=== PATIENT | female | born 1995 | race American Indian/Alaskan Native ===

== ENCOUNTER 2020-07-03 04:08 | Emergency (ER) | payer OTHER ==
[2020-07-03] MEDS ORDERED: SODIUM CHLORIDE 0.9% 1000 ML 1,000 ML IV ONE (04:48)
--- NOTE | 2020-07-03 05:08 | Emergency Department Report ---
HPI - General Chief Complaint: Overdose - HPI HPI: The patient is a 24-year-old female presenting with a chief complaint of suicidal ideation and cyproheptadine overdose. The patient states she is felt depressed for the past month and yesterday at approximate 17:00 she overdosed on multiple (quantity unknown) cyproheptadine 4 mg tablets. Patient denies any other coingestions. The patient states she just wanted to "end it all." Poison control was contacted by nursing recommended labs and normal saline 1 L ED Review of Systems ROS: Stated complaint: DRUG OD Other details as noted in HPI Physical Exam - Physical Exam Vital Signs: Vital Signs 07/03/20 04:15 Temperature 98.0 F Pulse Rate 124 H Respiratory 19 Rate Blood Pressure 113/63 [Right] O2 Sat by Pulse 98 Oximetry ED Course Vital Signs 07/03/20 04:15 Temperature 98.0 F Pulse Rate 124 H Respiratory 19 Rate Blood Pressure 113/63 [Right] O2 Sat by Pulse 98 Oximetry Critical care attestation.: If time is entered above; I have spent that time in minutes in the direct care o f this critically ill patient, excluding procedure time. ED Disposition Condition: Stable
--- NOTE | 2020-07-03 05:10 | Emergency Department Report ---
Chief Complaint: Overdose Stated Complaint: DRUG OD Time Seen by Provider: 07/03/20 05:09 - HPI History of Present Illness: The patient is a 24-year-old female presenting with a chief complaint of suicidal ideation and cyproheptadine overdose. The patient states she is felt depressed for the past month and yesterday at approximate 17:00 she overdosed on multiple (quantity unknown) cyproheptadine 4 mg tablets. Patient denies any other coingestions. The patient states she just wanted to "end it all." Poison control was contacted by nursing recommended labs and normal saline 1 L - Exam Vital Signs: Vital Signs 07/03/20 04:15 Temperature 98.0 F Pulse Rate 124 H Respiratory 19 Rate Blood Pressure 113/63 [Right] O2 Sat by Pulse 98 Oximetry MSE screening note: Focused history and physical exam performed. Due to findings the following was ordered: Labs, normal saline 1 L, 1013 ED Disposition for MSE Condition: Stable
[2020-07-03 05:37] LABS: Basophils # (Auto) 0.1 K/mm3 (0.0-0.1); Eosinophils # (Auto) 0.1 K/mm3 (0.0-0.4); Eosinophils % (Auto) 1.7 % (0.0-4.3); Hematocrit 38.3 % (30.3-42.9); Hemoglobin 12.5 gm/dl (10.1-14.3); Lymphocytes # (Auto) 1.5 K/mm3 (1.2-5.4); Lymphocytes % (Auto) 22.4 % (13.4-35.0); Mean Corpuscular HGB Conc 33 % (30-34); Mean Corpuscular Volume 79 fl (79-97); Monocytes # (Auto) 0.4 K/mm3 (0.0-0.8); Monocytes % (Auto) 6.5 % (0.0-7.3); Platelet Count 233 K/mm3 (140-440); Red Blood Count 4.84 M/mm3 (3.65-5.03)
[2020-07-03 05:58] LABS: Alanine Aminotransferase 12 units/L (7-56); Albumin 4.4 g/dL (3.9-5); BUN/Creatinine Ratio 18; Blood Urea Nitrogen 14 mg/dL (7-17); Calcium 9.6 mg/dL (8.4-10.2); Hemolysis Index 1
--- NOTE | 2020-07-03 06:14 | Emergency Department Report ---
ED General Adult HPI - General Chief complaint: Overdose Stated complaint: DRUG OD Time Seen by Provider: 07/03/20 05:09 Source: patient, EMS Mode of arrival: Wheelchair Limitations: No Limitations - Related Data Allergies Allergy/AdvReac Type Severity Reaction Status Date / Time No Known Allergies Allergy Unverified 07/03/20 04:44 ED Review of Systems ROS: Stated complaint: DRUG OD Other details as noted in HPI ED Past Medical Hx - Social History Smoking Status: Never Smoker Substance Use Type: None ED Physical Exam - General Limitations: No Limitations ED Course Vital Signs 07/03/20 07/03/20 07/03/20 04:15 04:30 04:46 Temperature 98.0 F Pulse Rate 124 H 115 H 112 H Respiratory 19 16 17 Rate Blood Pressure 113/63 113/63 Blood Pressure 113/63 [Right] O2 Sat by Pulse 98 100 100 Oximetry 07/03/20 07/03/20 07/03/20 05:00 05:16 05:30 Temperature Pulse Rate 112 H 116 H 117 H Respiratory 12 16 24 Rate Blood Pressure 107/67 107/67 104/69 Blood Pressure [Right] O2 Sat by Pulse 100 100 100 Oximetry 07/03/20 07/03/20 07/03/20 05:46 06:16 06:30 Temperature Pulse Rate 109 H 103 H 106 H Respiratory 17 20 16 Rate Blood Pressure 104/69 113/71 107/69 Blood Pressure [Right] O2 Sat by Pulse 98 100 100 Oximetry 07/03/20 06:46 Temperature Pulse Rate 107 H Respiratory 15 Rate Blood Pressure 107/69 Blood Pressure [Right] O2 Sat by Pulse 100 Oximetry ED Medical Decision Making - Lab Data Result diagrams: 07/03/20 04:50 07/03/20 04:50 Laboratory Results - last 24 hr 07/03/20 07/03/20 07/03/20 04:50 04:50 04:50 WBC 6.8 RBC 4.84 Hgb 12.5 Hct 38.3 MCV 79 MCH 26 L MCHC 33 RDW 14.0 Plt Count 233 Lymph % (Auto) 22.4 [place] % (Auto) 6.5 Eos % (Auto) 1.7 Baso % (Auto) 1.0 Lymph # (Auto) 1.5 [place] # (Auto) 0.4 Eos # (Auto) 0.1 Baso # (Auto) 0.1 Seg Neutrophils % 68.4 Seg Neutrophils # 4.7 Sodium 142 Potassium 4.3 Chloride 104.6 Carbon Dioxide 27 Anion Gap 15 BUN 14 Creatinine 0.8 Estimated GFR > 60 BUN/Creatinine Ratio 18 Glucose 92 Calcium 9.6 Total Bilirubin 0.30 AST 15 ALT 12 Alkaline Phosphatase 63 Total Protein 7.8 Albumin 4.4 Albumin/Globulin Ratio 1.3 Salicylates Acetaminophen 5.0 L Plasma/Serum Alcohol 07/03/20 07/03/20 04:50 04:50 WBC RBC Hgb Hct MCV MCH MCHC RDW Plt Count Lymph % (Auto) [place] % (Auto) Eos % (Auto) Baso % (Auto) Lymph # (Auto) [place] # (Auto) Eos # (Auto) Baso # (Auto) Seg Neutrophils % Seg Neutrophils # Sodium Potassium Chloride Carbon Dioxide Anion Gap BUN Creatinine Estimated GFR BUN/Creatinine Ratio Glucose Calcium Total Bilirubin AST ALT Alkaline Phosphatase Total Protein Albumin Albumin/Globulin Ratio Salicylates < 0.3 L Acetaminophen Plasma/Serum Alcohol < 0.01 - EKG Data -: EKG Interpreted by Ar EKG shows normal: sinus rhythm, axis, intervals, QRS complexes, ST-T waves Rate: tachycardia - EKG Data Interpretation: nonspecific ST-T wave sonny Critical care attestation.: If time is entered above; I have spent that time in minutes in the direct care of this critically ill patient, excluding procedure time. ED Disposition Condition: Stable Referrals: PRIMARY CARE, [Primary Care Provider] - 3-5 Days
[2020-07-03 06:36] LABS: Amphetamine Screen,Urine PRESUMPTIVE NEGATIVE; Benzodiazepines Screen,Urine PRESUMPTIVE NEGATIVE; Cannabinoid Screen,Urine PRESUMPTIVE NEGATIVE; Cocaine Screen,Urine PRESUMPTIVE NEGATIVE; Methadone Screen,Urine PRESUMPTIVE NEGATIVE; Opiate Screen,Urine PRESUMPTIVE NEGATIVE
[2020-07-03 06:39] LABS: Bacteria,Urine 1+ /HPF (Negative); Bilirubin,Urine NEG (Negative); Blood,Urine NEG (Negative); Color,Urine Yellow (Yellow); Mucus,Urine FEW /HPF; Protein,Urine <15 mg/dL mg/dL (Negative); Urobilinogen,Urine < 2.0 mg/dL (<2.0)
--- NOTE | 2020-07-03 07:51 | Emergency Department Report ---
ED Psych HPI - General Chief Complaint: Overdose Stated Complaint: DRUG OD Time Seen by Provider: 07/03/20 05:09 Source: patient, EMS Mode of arrival: Wheelchair - History of Present Illness Initial Comments: This is a 24-year-old female who states that she took an overdose at 10 AM yesterday. She is very vague as to quantity but finally states that the number of pills fit in the palm of her hand. She denies taking anything other than Periactin which she thinks is a high blood pressure medicine and appetite stimulating pill that her mother is taking. She is denies taking 2 medications clearly. She states that she was generally feeling sad. She denies any pre- existing plan for suicide or continuing intent. She states that she has no prior history of mental health disorder or hospitalization. She states that she has never been prescribed anything for "being sad". She states that she is dissatisfied with her life although she knows that "many people have it worse". She states that she works but does not describe a specific job but states he does several things. Her command of Greek is moderately good. She is however a very vague historian. A 1013 was already executed by my colleague prior to my arrival. Complaint: feels depressed, other (Suicidal gesture) -: week(s) (Long-term), month(s) Associated Psychiatric Symptoms: depression History of same: No (Denies previous overdose) Improves With: none Worsens With: none Context: significant life stressor (Could not identify 1) Associated Symptoms: denies other symptoms Treatments Prior to Arrival: none If Self Harm: admits thoughts of - Related Data Allergies Allergy/AdvReac Type Severity Reaction Status Date / Time No Known Allergies Allergy Unverified 07/03/20 04:44 ED Review of Systems ROS: Stated complaint: DRUG OD Other details as noted in HPI Constitutional: denies: chills, fever Eyes: denies: eye pain, vision change ENT: denies: ear pain, throat pain Respiratory: denies: cough, shortness of breath Cardiovascular: denies: chest pain, palpitations Endocrine: no symptoms reported Gastrointestinal: denies: abdominal pain, nausea, diarrhea Genitourinary: denies: urgency, dysuria Musculoskeletal: denies: back pain, arthralgia Skin: denies: rash, lesions Neurological: denies: headache, weakness, paresthesias Psychiatric: depression. denies: anxiety Hematological/Lymphatic: denies: easy bleeding, easy bruising ED Past Medical Hx - Past Medical History Previous Medical History?: No - Social History Smoking Status: Never Smoker Substance Use Type: None ED Physical Exam - General Limitations: No Limitations General appearance: alert, in no apparent distress - Head Head exam: Present: atraumatic, normocephalic - Eye Eye exam: Present: normal appearance - ENT ENT exam: Present: mucous membranes moist - Neck Neck exam: Present: normal inspection - Respiratory Respiratory exam: Present: normal lung sounds bilaterally. Absent: respiratory distress - Cardiovascular Cardiovascular Exam: Present: normal rhythm, tachycardia. Absent: systolic murmur, diastolic murmur, rubs, gallop - GI/Abdominal GI/Abdominal exam: Present: soft, normal bowel sounds. Absent: distended, tenderness, guarding, rebound - Extremities Exam Extremities exam: Present: normal inspection. Absent: calf tenderness - Back Exam Back exam: Present: normal inspection - Neurological Exam Neurological exam: Present: alert, oriented X3, CN II-XII intact. Absent: motor sensory deficit - Psychiatric Psychiatric exam: Present: normal affect, normal mood - Skin Skin exam: Present: warm, dry, intact, normal color. Absent: rash ED Course Vital Signs 07/03/20 07/03/20 07/03/20 04:15 04:30 04:46 Temperature 98.0 F Pulse Rate 124 H 115 H 112 H Respiratory 19 16 17 Rate Blood Pressure 113/63 113/63 Blood Pressure 113/63 [Right] O2 Sat by Pulse 98 100 100 Oximetry 07/03/20 07/03/20 07/03/20 05:00 05:16 05:30 Temperature Pulse Rate 112 H 116 H 117 H Respiratory 12 16 24 Rate Blood Pressure 107/67 107/67 104/69 Blood Pressure [Right] O2 Sat by Pulse 100 100 100 Oximetry 07/03/20 07/03/20 07/03/20 05:46 06:16 06:30 Temperature Pulse Rate 109 H 103 H 106 H Respiratory 17 20 16 Rate Blood Pressure 104/69 113/71 107/69 Blood Pressure [Right] O2 Sat by Pulse 98 100 100 Oximetry 07/03/20 06:46 Temperature Pulse Rate 107 H Respiratory 15 Rate Blood Pressure 107/69 Blood Pressure [Right] O2 Sat by Pulse 100 Oximetry - Reevaluation(s) Reevaluation #1: Patient will be monitored further to assure resolution of her mild tachycardia. It is anticipated that she will be medically clear for psychiatric placement/evaluation. 07/03/20 07:52 ED Medical Decision Making - Lab Data Result diagrams: 07/03/20 04:50 07/03/20 04:50 Laboratory Results - last 24 hr 07/03/20 07/03/20 07/03/20 04:50 04:50 04:50 WBC 6.8 RBC 4.84 Hgb 12.5 Hct 38.3 MCV 79 MCH 26 L MCHC 33 RDW 14.0 Plt Count 233 Lymph % (Auto) 22.4 [place] % (Auto) 6.5 Eos % (Auto) 1.7 Baso % (Auto) 1.0 Lymph # (Auto) 1.5 [place] # (Auto) 0.4 Eos # (Auto) 0.1 Baso # (Auto) 0.1 Seg Neutrophils % 68.4 Seg Neutrophils # 4.7 Sodium 142 Potassium 4.3 Chloride 104.6 Carbon Dioxide 27 Anion Gap 15 BUN 14 Creatinine 0.8 Estimated GFR > 60 BUN/Creatinine Ratio 18 Glucose 92 Calcium 9.6 Total Bilirubin 0.30 AST 15 ALT 12 Alkaline Phosphatase 63 Total Protein 7.8 Albumin 4.4 Albumin/Globulin Ratio 1.3 HCG, Qual Urine Color Urine Turbidity Urine pH Ur Specific [place] Urine Protein Urine Glucose (UA) Urine Ketones Urine Blood Urine Nitrite Urine Bilirubin Urine Urobilinogen Ur Leukocyte Esterase Urine WBC (Auto) Urine RBC (Auto) U Epithel Cells (Auto) Urine Bacteria (Auto) Urine Mucus Salicylates Urine Opiates Screen Urine Methadone Screen Acetaminophen 5.0 L Ur Barbiturates Screen Ur Phencyclidine Scrn Ur Amphetamines Screen U Benzodiazepines Scrn Urine Cocaine Screen U Marijuana (THC) Screen Drugs of Abuse Note Plasma/Serum Alcohol 07/03/20 07/03/20 07/03/20 04:50 04:50 05:05 WBC RBC Hgb Hct MCV MCH MCHC RDW Plt Count Lymph % (Auto) [place] % (Auto) Eos % (Auto) Baso % (Auto) Lymph # (Auto) [place] # (Auto) Eos # (Auto) Baso # (Auto) Seg Neutrophils % Seg Neutrophils # Sodium Potassium Chloride Carbon Dioxide Anion Gap BUN Creatinine Estimated GFR BUN/Creatinine Ratio Glucose Calcium Total Bilirubin AST ALT Alkaline Phosphatase Total Protein Albumin Albumin/Globulin Ratio HCG, Qual Negative Urine Color Urine Turbidity Urine pH Ur Specific [place] Urine Protein Urine Glucose (UA) Urine Ketones Urine Blood Urine Nitrite Urine Bilirubin Urine Urobilinogen Ur Leukocyte Esterase Urine WBC (Auto) Urine RBC (Auto) U Epithel Cells (Auto) Urine Bacteria (Auto) Urine Mucus Salicylates < 0.3 L Urine Opiates Screen Urine Methadone Screen Acetaminophen Ur Barbiturates Screen Ur Phencyclidine Scrn Ur Amphetamines Screen U Benzodiazepines Scrn Urine Cocaine Screen U Marijuana (THC) Screen Drugs of Abuse Note Plasma/Serum Alcohol < 0.01 07/03/20 07/03/20 Unknown Unknown WBC RBC Hgb Hct MCV MCH MCHC RDW Plt Count Lymph % (Auto) [place] % (Auto) Eos % (Auto) Baso % (Auto) Lymph # (Auto) [place] # (Auto) Eos # (Auto) Baso # (Auto) Seg Neutrophils % Seg Neutrophils # Sodium Potassium Chloride Carbon Dioxide Anion Gap BUN Creatinine Estimated GFR BUN/Creatinine Ratio Glucose Calcium Total Bilirubin AST ALT Alkaline Phosphatase Total Protein Albumin Albumin/Globulin Ratio HCG, Qual Urine Color Yellow Urine Turbidity Slightly-cloudy Urine pH 7.0 Ur Specific [place] 1.016 Urine Protein <15 mg/dl Urine Glucose (UA) Neg Urine Ketones Neg Urine Blood Neg Urine Nitrite Neg Urine Bilirubin Neg Urine Urobilinogen < 2.0 Ur Leukocyte Esterase Neg Urine WBC (Auto) 2.0 Urine RBC (Auto) 1.0 U Epithel Cells (Auto) 8.0 Urine Bacteria (Auto) 1+ Urine Mucus Few Salicylates Urine Opiates Screen Presumptive negative Urine Methadone Screen Presumptive negative Acetaminophen Ur Barbiturates Screen Presumptive negative Ur Phencyclidine Scrn Presumptive negative Ur Amphetamines Screen Presumptive negative U Benzodiazepines Scrn Presumptive negative Urine Cocaine Screen Presumptive negative U Marijuana (THC) Screen Presumptive negative Drugs of Abuse Note Disclamer Plasma/Serum Alcohol - EKG Data -: EKG Interpreted by Ct EKG shows normal: sinus rhythm Rate: tachycardia - EKG Data Interpretation: nonspecific ST-T wave sonny Critical care attestation.: If time is entered above; I have spent that time in minutes in the direct care of this critically ill patient, excluding procedure time. ED Disposition Clinical Impression: Medical clearance for psychiatric admission Suicide gesture Qualifiers: Encounter type: initial encounter Qualified Code(s): X83.8XXA - Intentional self-harm by other specified means, initial encounter Depression Qualifiers: Depression Type: unspecified Qualified Code(s): F32.9 - Major depressive disorder, single episode, unspecified Overdose Qualifiers: Encounter type: initial encounter Injury intent: intentional self-harm Qualified Code(s): T50.902A - Poisoning by unspecified drugs, medicaments and biological substances, intentional self-harm, initial encounter Disposition: [id number]/[id number] PSY HOSP/PSY UNIT Is pt being admited?: No Does the pt Need Aspirin: No Condition: Stable Referrals: PRIMARY CARE, [Primary Care Provider] - 3-5 Days Time of Disposition: 10:08
[2020-07-03] MEDS ORDERED: ALUM-MAG HYDROXIDE-SIMETHICONE 200-200-20MG/5ML ORAL LIQD 30 ML PO PRN (07:58)
[2020-07-03] MEDS ORDERED: ACETAMINOPHEN 325 MG TAB PO PRN (07:58)
[2020-07-03] MEDS ORDERED: MAGNESIUM HYDROXIDE (MOM) ORAL LIQD UDC PO PRN (07:58)
--- NOTE | 2020-07-03 10:52 | Consultation ---
History of Present Illness - Reason for Consult Consult date: 07/03/20 Reason for consult: MHE Requesting physician: MORGAN WRIGHT - History of Present Psychiatric Illness Per ED Provider: This is a 24-year-old female who states that she took an overdose at 10 AM yesterday. She is very vague as to quantity but finally states that the number of pills fit in the palm of her hand. She denies taking anything other than Periactin which she thinks is a high blood pressure medicine and appetite stimulating pill that her mother is taking. She is denies taking 2 medications clearly. She states that she was generally feeling sad. She denies any pre-existing plan for suicide or continuing intent. She states that she has no prior history of mental health disorder or hospitalization. She states that she has never been prescribed anything for "being sad". She states that she is dissatisfied with her life although she knows that "many people have it worse". She states that she works but does not describe a specific job but states he does several things. Her command of German is moderately good. She is however a very vague historian. 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 Patients states she had been experiencing weakness and fatigue and some emotional instability. She reports not happy with some things in her current state of life. Like shes 24 and had not accomplished some goals and milestone mostly financial and also reports loosing stock money, but denies any suicidal i ntent says she does not want to and only took medication to get sleep n keep things off her mind Patient describes a good and stable mood, denies being depressed or excessively nervous. Patient eats and sleeps well. Patient denies panic attacks, recurrent nightmares or flashbacks. Patient denies symptoms suggestive of OCD or PTSD. Patient denies hallucinations, paranoia, thought interference and no features suggestive of hypomania or kaushik. Patiently completely denies suicidal or homicidal thoughts. PAST PSYCHIATRIC HISTORY Diagnoses: none reported Suicide attempts or Self-harm behavior:none reported Prior psychiatric hospitalizations: none reported Substance Abuse history: none reported Previous psychiatric medications tried: none reported Outpatient treatment: none reported PAST MEDICAL HISTORY: none Family Psychiatric History: None reported or documented SOCIAL HISTORY Marital Status:single Living Arrangements: with family Employment Status: employed Access to guns/weapons: none Education: high school History of Abuse: none Legal History: none REVIEW OF SYSTEMS Constitutional: Negative for weight loss ENT: Negative for stridor Respiratory: Negative for cough or hemoptysis All other systems reviewed and are negative MENTAL STATUS EXAMINATION General Appearance and Behavior: Age appropriate, good hygiene, wearing appropriate clothes,, good eye contact Cooperation: Participating/engaged, but Guarded Psychomotor Behavior: Psychomotor normal Mood: okay Affect and affective range: congruent with mood Thought Process: logical Thought Content: logical Speech: Normal rate, volume and rythm Intellectual Functioning: Average Suicidal Ideation: no SI Homicidal Ideation: Denies HI Impulse Control: unimpaired Insight and Judgment: Limited insight and judgment Memory: Normal Attention: Normal Orientation: Alert, oriented Diagnoses: Treatment Plan MEDICATIONS: Risks, benefits and alternatives of medications discussed with the patient, questions answered and consent obtained from patient. PSYCHOTHERAPY: Supportive psychotherapy provided MEDICAL: Per primary team DELIRIUM PRECAUTIONS: Please re-orient patient frequently, keep lights on during the day, and minimize benzodiazepines and opiates as these medications could worsen patient's confusion. CANCELLATION CLERK: DISPOSITION: Do Not Recommend acute inpatient psychiatric hospitalization at this time. Case discussed with Dr. Pham who agrees with current disposition. safety discharge LEGAL STATUS: voluntary FOLLOW-UP: Will sign off Thank you for the consult. Please contact with any questions and/or concerns. Medications and Allergies Allergies Allergy/AdvReac Type Severity Reaction Status Date / Time No Known Allergies Allergy Unverified 07/03/20 04:44 Active Meds: Active Medications Acetaminophen (Acetaminophen 325 Mg Tab) 650 mg PO Q4HR PRN PRN Reason: Pain MILD(1-3)/Fever >100.5/QUIJANO Al Hydrox/Mg Hydrox/Simethicone (Alum-Mag Hydroxide-Simethicone [id number]/5ml Oral Liqd 30 Ml) 30 ml PO Q4HR PRN PRN Reason: Indigestion Magnesium Hydroxide (Magnesium Hydroxide (Mom) Oral Liqd Udc) 30 ml PO Q12HR PRN PRN Reason: Constipation Mental Status Exam - Vital signs Last Vital Signs Temp 98.0 F 07/03/20 04:15 Pulse 107 H 07/03/20 06:46 Resp 15 07/03/20 06:46 BP 107/69 07/03/20 06:46 Pulse Ox 100 07/03/20 06:46 Results Result Diagrams: 07/03/20 04:50 07/03/20 04:50 Abnormal lab results 07/03/20 07/03/20 07/03/20 Range/Units 04:50 04:50 04:50 MCH 26 L (28-32) pg Salicylates < 0.3 L (2.8-20.0) mg/dL Acetaminophen 5.0 L (10.0-30.0) ug/mL All other labs normal.
[2020-07-03 11:24] VITALS: BP 106/53
--- NOTE | 2020-07-03 14:04 | Electrocardiograph Report ---
[facility] Test Date: 2020-07-03 Test Time: 04:31:58 Pat Name: DIAMANTE GUO Department: Room: Gender: F Journalism Intern: CHAZ : [id number] Requested By: JEANINE PIERCE Order Number: [id number] Reading MD: Dustin Perez Measurements Intervals [place] Rate: 113 P: 74 DE: 133 QRS: 69 QRSD: 75 T: 27 QT: 312 QTc: 429 Interpretive Statements Sinus tachycardia No previous ECG available for comparison Electronically Signed On 07-03-2020 11:04:47 PDT by Dustin Perez
== END 2020-07-03 15:44 | disposition home or self-care (01) ==
LOC: ED 04:08
DX: T50.902A Poisoning by unspecified drugs, medicaments and biological substances, intentional self-harm, initial encounter (principal); F32.9 Major depressive disorder, single episode, unspecified; Z00.8 Encounter for other general examination; X83.8XXA Intentional self-harm by other specified means, initial encounter; Y93.89 Activity, other specified; Y92.89 Other specified places as the place of occurrence of the external cause; Y99.8 Other external cause status
CPT/HCPCS: 36415; 80053; 80307; 81001; 84703; 85025; 93005; 96360; 96361; 99284; J7030; 80320; G0480